=== PATIENT | male | born 1980 | race Caucasian/White ===

== ENCOUNTER 2022-06-01 15:56 | Emergency (ER) | payer SELFPAY ==
[~2022-06-01] VITALS: Ht 175.3 cm; Wt 96.0 kg
[2022-06-01 16:22] VITALS: BP 144/89
[2022-06-01] MEDS ORDERED: IBUPROFEN 400MG TABLET PO ONE (22:30)
[2022-06-01] MEDS ORDERED: KETOROLAC 60MG/2ML VIAL IM ONE (22:45)
[2022-06-02] MEDS ORDERED: TRAM50TA MT (00:02)
[2022-06-02] MEDS ORDERED: IBUP-2028 MT (00:02)
== END 2022-06-02 00:18 | disposition home or self-care (01) ==
LOC: ER 15:56
DX: M54.50 Low back pain, unspecified (principal)
CPT/HCPCS: 72100; 99283